=== PATIENT | female | born 1960 | race Asian ===

== ENCOUNTER 2022-02-05 23:05 | Emergency (ER) | payer OTHER, BC ==
[~2022-02-05] VITALS: Ht 165.1 cm; Wt 61.2 kg
[2022-02-05 23:14] VITALS: BP 138/81
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
--- NOTE | 2022-02-05 23:26 | NUR ---
BROUGHT PT TO THE LOBBY BY AMBULANCE EMT
--- NOTE | 2022-02-05 23:26 | NUR ---
PT GHAZALA RAINEY, TAKEN TO LOBBY
--- NOTE | 2022-02-06 02:25 | NUR ---
PT TO BED 06 VIA W/C
--- NOTE | 2022-02-06 02:37 | NUR ---
put pt on bed mckeon
--- NOTE | 2022-02-06 02:51 | NUR ---
X-Ray at bedside
[2022-02-06] MEDS ORDERED: KETOROLAC 15 MG/ML VIAL IVP ONE ×2 (03:00→06:15)
[2022-02-06] MEDS ORDERED: MORPHINE SULFATE 4 MG/ML SYR IVP ONE ×3 (03:00→20:15)
[2022-02-06 03:51] LABS: BASOPHILS % (AUTO) 0.2 % (0.0-2.0); HEMATOCRIT 37.3 % (36-48); HEMOGLOBIN 12.5 g/dL (12.0-16.0); LYMPHOCYTES % (AUTO) 10.9 % (20.5-51.1); MEAN CORPUSCULAR HEMOGLOBIN 29 pg (27-31); MEAN CORPUSCULAR HGB CONC 33 g/dL (33-37); MEAN CORPUSCULAR VOLUME 86.2 fL (80-94); MONOCYTES # (AUTO) 0.4 K/uL (0.8-1.0); MONOCYTES % (AUTO) 4.7 % (1.7-9.3); NEUTROPHILS # (AUTO) 7.7 K/uL (1.8-7.7); NEUTROPHILS % (AUTO) 84.2 % (42.2-75.2); PLATELET COUNT (AUTO) 233 K/uL (140-450); RED BLOOD CELL COUNT(AUTO) 4.33 MIL/uL (4.20-5.40); RED CELL DISTRIBUTION WIDTH 14.2 % (11.6-13.7); WHITE BLOOD COUNT (AUTO) 9.1 K/uL (4.8-10.8)
[2022-02-06 04:05] LABS: ANION GAP 11.8 (8-16); CARBON DIOXIDE 23.8 mmol/L (21-32); CREATININE 0.4 mg/dL (0.6-1.3); POTASSIUM 3.6 mmol/L (3.5-5.1)
[2022-02-06 04:56] LABS: PROTHROMBIN TIME 9.6 secs (10.8-13.4)
--- NOTE | 2022-02-06 07:44 | NUR ---
Pt report given to KIRILL VAIL. Transfer of care at this time.
--- NOTE | 2022-02-06 07:45 | NUR ---
REPORT RECEIVED FROM TERESA ROY. ASSUMED CARE AT THIS TIME
--- NOTE | 2022-02-06 07:58 | NUR ---
PT AT REST LAYING SUPINE POSITION. DENIES PAIN AT THIS TIME. NO VISIBLE DISTRESS. RESPIRATIONS EVEN AND UNLABORED. PROVIDED W/ WARM BLANKET
--- NOTE | 2022-02-06 08:50 | NUR ---
SPOKE W/ AUGER SUPERVISOR AT [facility]. PT ACCEPTED , PENDING BED ASSIGNMENT
--- NOTE | 2022-02-06 09:17 | NUR ---
RAFFI COLLECTED, WALKED LAB AND HANDED TO SKATING RINK MANAGER
--- NOTE | 2022-02-06 09:30 | NUR ---
DAUGHTER JANE UPDATED ON PT STATUS AND PENDING TX . CELLPHONE : [phone]
--- NOTE | 2022-02-06 13:40 | NUR ---
URINE CANISTER EMPTIED. 400ML COLLECTED
--- NOTE | 2022-02-06 13:49 | NUR ---
PT PROVIDED W/ LUNCH. PT AWAKE, REPOSITIONED AND EATING IN BED
[2022-02-06] MEDS ORDERED: MORPHINE SULFATE 2 MG/ML SYR IVP ONE (13:55)
[2022-02-06] MEDS ORDERED: ONDANSETRON 4 MG/2 ML VIAL IVP ONE ×2 (13:55→20:15)
--- NOTE | 2022-02-06 15:45 | NUR ---
KNEE IMMOBILZER PLACED TO R KNEE.
[2022-02-06] MEDS ORDERED: FAMOTIDINE 20 MG/2 ML VIAL IVP ONE (16:40)
--- NOTE | 2022-02-06 18:43 | NUR ---
PT PROVIDED W/ LUNCH. PT AWAKE , REPOSITIONED AND EATING IN BED
--- NOTE | 2022-02-06 19:00 | NUR ---
PT PROVIDED WITH DINNER . PT AWAKE AND EATING
--- NOTE | 2022-02-06 19:23 | NUR ---
REPORT GIVEN TO PATTIE ANDREWS. ALL QUESTIONS ANSWERED. TRANSFER OF CARE AT THIS TIME
--- NOTE | 2022-02-06 20:00 | NUR ---
COMPLAINED OF SEVERE PAIN 9/10, GENERALIZED MORE ON HER KNEE AND BACK, ERMD NOTED
--- NOTE | 2022-02-07 00:15 | NUR ---
[facility] TRANSPORT ARRIVED FOR TIRE MANAGER
--- NOTE | 2022-02-07 00:20 | NUR ---
REPORT GIVEN TO XU ANDREWS
[2022-02-07 00:25] VITALS: BP 118/78
--- NOTE | 2022-02-07 00:25 | NUR ---
Patient to be transferred to [employer]. Is being transferred due to INSUR[employer]. Receiving facility has accepting physician and available space. ER physician has signed transfer form. Patient or responsible libertarian has agreed to transfer and signed form. Patient belongings inventoried and will be sent with patient. Copy of nursing notes, lab reports, EKG, Physicians Orders and X-rays to be sent with patient. Report called to XU ANDREWS at receiving facility.[facility] ambulance service has been called for transfer.
--- NOTE | 2022-02-07 00:33 | NUR ---
CALLED UP HER DAUGHTER JODY ,NO RESPONSE, LEAVE A VOICE MESSAGE TO HER CELLPHONE [phone]
== END 2022-02-07 00:25 | disposition short-term general hospital (02) ==
LOC: MED 23:05
DX: S72.491A Other fracture of lower end of right femur, initial encounter for closed fracture (principal); W19.XXXA Unspecified fall, initial encounter; Y93.89 Activity, other specified; Y92.89 Other specified places as the place of occurrence of the external cause; Y99.8 Other external cause status
CPT/HCPCS: 29505; 36415; 71045; 72170; 73560; 80048; 85025; 85610; 85730; 86870; 86886; 86900; 86901; 87426; 93005; 96374; 96375; 96376; 99284; J1885; J2270; J2405; J3490